=== PATIENT | male | born 1960 | race African-American/Black ===

== ENCOUNTER 2018-02-14 22:17 | Inpatient (IN) ==
[2018-02-17 13:10] VITALS: BP 151/83
== END 2018-02-17 15:40 | disposition home or self-care (01) | DRG 101 ==
LOC: EDBD → EDUNIT# → N.ED 22:17 → N.EDINP 02-15 01:44 → SUATTDRO 02-15 01:44 → N.ICU 02-15 02:11 → N.4E 02-16 12:31
PROVIDERS: ADMIT Internal Medicine Cardiovascular Disease; ATTEND Internal Medicine Infectious Disease